=== PATIENT | female | born 1975 | race Caucasian/White ===

== ENCOUNTER → 2017-03-22 | Outpatient (CLI) | payer OTHER ==
[~2017-03-22] MED LIST: NAPR1TAB9 PO
== END | disposition home or self-care (01) ==
LOC: C.PATHSPEC 16:47
PROVIDERS: ATTEND Dermatology
DX: B07.9 Viral wart, unspecified (principal)

== ENCOUNTER → 2017-08-23 | Outpatient (CLI) | payer OTHER ==
--- NOTE | 2017-08-23 14:50 | DIAGNOSTIC IMAGING REPORT ---
R RIBS UNILATERAL WITH PA CHEST HISTORY: 42 years-old Female RIGHT RIB PAIN acute atypical chest pain with right-sided rib pain. COMPARISON: None available TECHNIQUE: PA view of the chest with 4 views of the right ribs FINDINGS: Cardiomediastinal and hilar silhouettes are within normal limits. No pneumothorax, pleural effusion, focal airspace consolidation or overt pulmonary edema. Surgical clips project over the left axilla. Acute minimally displaced fracture involves the lateral aspect of the right seventh rib with additional questioned acute fracture of the lateral right sixth rib. IMPRESSION: 1. No acute processes of the chest. 2. Acute minimally displaced fracture of the lateral aspect right seventh rib with questioned acute nondisplaced fracture of the lateral right sixth rib. The above report was generated using voice recognition software. It may contain grammatical, syntax or spelling errors. Electronically signed by: Chava Smart M.D. 08/23/2017 2:48 PM Dictated Date/Time: 08/23/2017 2:45 PM
== END | disposition home or self-care (01) ==
LOC: C.RAD 14:20
PROVIDERS: ATTEND Emergency Medicine
DX: R07.81 Pleurodynia (principal); M84.48XA Pathological fracture, other site, initial encounter for fracture

== ENCOUNTER 2019-01-01 11:58 | Inpatient (IN) ==
[2019-01-01] MEDS ORDERED: MoRPHine SULFATE 4 MG/ML 1 ML CARP\\VIAL IV STA ×2 (12:36→15:07)
[2019-01-01] MEDS ORDERED: VANCOMYCIN HCL 1,750 MG in SODIUM CHLORIDE 0.9% 500 ML IV ONE (12:38)
[2019-01-01] MEDS ORDERED: VANCOMYCIN CONSULT ACTIVE PRN (12:38)
--- NOTE | 2019-01-01 12:50 | Emergency Department Note ---
History of Present Illness General Chief complaint: Wound Recheck Stated complaint: RECHECK OF BITE History of Present Illness Maximum Pain Intensity: 6 This patient is a 43-year-old female presents to the emergency department with complaints of redness, swelling and pain to the right hand/thumb. The patient was bitten by a possible insect 3 nights ago. She reports a history of anaphy laxis to bees. The patient did not see the insect. The pain is a throbbing sensation. She rates her discomfort a 5/10. She has been taking Tylenol [id number] with no relief. The patient was seen in the emergency department last evening for the same complaint. She was given 1 dose of Roce phin. She was put on Keflex and Bactrim, which she has been taking as prescribed with no improvement. Vaccinations are up-to-date. She denies any fever. The patient is right-hand dominant. Home Medications Home Medications Medication Instructions Recorded Confirmed Type cephalexin [Keflex] 500 mg PO Q6H 10 Days #40 cap 12/31/18 01/01/19 Rx sulfamethoxazole-trimethoprim 1 tab PO Q12H 10 Days #20 tab 12/31/18 01/01/19 Rx [Bactrim DS] Allergies Allergy/AdvReac Type Severity Reaction Status Date / Time amoxicillin Allergy Intermediate RASH Verified 01/01/19 12:35 ketorolac Allergy Unknown hives with Verified 01/01/19 12:35 large dose nitrofurantoin Allergy Unknown rash Verified 01/01/19 12:35 Penicillins Allergy Unknown rash Verified 01/01/19 12:35 promethazine Allergy Unknown unknown Verified 01/01/19 12:35 tramadol Allergy Unknown hives Verified 01/01/19 12:35 vancomycin Allergy Rash Verified 01/01/19 19:55 Past Med/Surg History Medical History Anemia, unspecified (Chronic) Raynauds syndrome (Chronic) Lupus Surgical History History of total hip replacement No significant past surgical history Social History Preferred Language: Barbadian Communication Ability: Effective Icu Registered Nurse Required: No Beliefs That Will Affect Care: None marital status: Single Current Living Situation: Spouse current occupational status: employed Other Information That Helps Us Care for You: No Feels Safe at Home: Yes Safety Concerns: Feels Safe At This Time Smoking Status: Never smoker Do You Dip or Chew Tobacco: No ; Second Hand Exposure: No ; Tobacco Cessation Education Requested by Patient: No Hx Alcohol Use: Yes Hx Substance Use: No Review of Systems A total of 10 systems reviewed and were otherwise negative Physical Exam Vital Signs Vital Signs - 24 hr 01/01/19 12:10 01/01/19 13:09 01/01/19 13:30 Temperature 36.6 C Temperature Source Oral Sepsis Recent Fever Within 48 Hours No Sepsis New/Unexplained Change in Mental Status No Sepsis Action Taken by Nursing No Action Required Pulse Rate 85 67 64 Pulse Rate from SpO2 Sensor 67 66 Respiratory Rate 18 9 L 14 Respiratory Depth Normal Blood Pressure 127/83 129/78 143/90 H Blood Pressure Mean 97 95 107 Pulse Oximetry 97 96 98 Oxygen Delivery Method Room Air 01/01/19 14:00 01/01/19 14:30 Temperature Temperature Source Sepsis Recent Fever Within 48 Hours Sepsis New/Unexplained Change in Mental Status Sepsis Action Taken by Nursing Pulse Rate 74 75 Pulse Rate from SpO2 Sensor 72 73 Respiratory Rate 13 15 Respiratory Depth Blood Pressure 130/90 121/77 Blood Pressure Mean 103 91 Pulse Oximetry 99 100 Oxygen Delivery Method Constitutional WD/WN, vitals as above Eyes EOM intact bilaterally ENMT external ear and nose normal, oropharynx normal Neck trachea midline Respiratory normal respiratory effort, lungs clear to auscultation Cardiovascular RRR, no murmur, no edema Musculoskeletal Diffuse edema and erythema noted to the right hand particularly over the thumb, thenar aspect proceeding upwards with erythematous streaking to the forearm. Significant pain with flexion and extension of the right thumb. Skin There is an approximately 3 cm large hemorrhagic bullae noted to the proximal aspect of the right thumb. Capillary refill in the right thumb is less than 2 seconds. Sensation in the thumb is intact. Neurologic Alert and oriented x3. No focal motor deficits. Psychiatric Acting appropriately Course Patient was seen and examined Vital signs including blood pressure were reviewed medications list was verified with patient Labs were obtained, and a saline lock was established The patient was ordered morphine 4 mg IV for pain. She was ordered 1 dose of vancomycin IV. Orthopedics was consulted. They personally evaluated the patient. I was called by the RN that the patient was having a reaction to the vancomycin. When I reassessed the patient. She did have an erythematous rash particularly on her cheeks and abdomen. She was ordered Benadryl 50 mg and Solu-Medrol 125 mg. The case was discussed with orthopedics. They agreed to admit the patient for further observation and treatment. The patient was in agreement. She was ordered 1 additional dose of morphine 4 mg IV. Her vital signs remained stable. Consultations Consultation #1: Dr. Gerardo and team Administered Medications Acetaminophen (Tylenol) 650 mg PO Q6H PRN PRN Reason: Fever or Headache Stop: 01/31/19 16:09 Last Admin: 01/01/19 19:55 Dose: 650 mg Documented by: [id number] Cefazolin Sodium (Ancef 2000mg) 2,000 mg in 15 mls @ 3.75 mls/min IV Q8H TODD Stop: 01/11/19 16:29 Last Admin: 01/01/19 17:42 Dose: 3.75 mls/min Documented by: [id number] Trimethoprim/Sulfamethoxazole (Septra Ds 800/160mg Tab) 1 tab PO Q12 TODD Stop: 01/11/19 20:59 Last Admin: 01/01/19 20:56 Dose: 1 tab Documented by: [id number] Discontinued Medications Diphenhydramine HCl (Benadryl) 50 mg IV NOW STA Stop: 01/01/19 15:00 Last Admin: 01/01/19 15:08 Dose: 50 mg Documented by: [id number] Vancomycin HCl 1,750 mg/ (Sodium Chloride) 535 mls @ 200 mls/hr IV NOW ONE Stop: 01/01/19 15:18 Last Infusion: 01/01/19 14:50 Dose: 0 mls/hr Documented by: [id number] Admin: 01/01/19 13:01 Dose: 200 mls/hr Documented by: [id number] Methylprednisolone (Solumedrol) 125 mg IV NOW STA Stop: 01/01/19 15:00 Last Admin: 01/01/19 15:08 Dose: 125 mg Documented by: [id number] Methylprednisolone (Solumedrol) Confirm Administered Dose 125 mg .ROUTE .STK-MED ONE Stop: 01/01/19 15:01 Last Admin: 01/01/19 15:08 Dose: Not Given Documented by: [id number] Morphine Sulfate (Morphine Sulfate) 4 mg IV NOW STA Stop: 01/01/19 12:37 Last Admin: 01/01/19 12:59 Dose: 4 mg Documented by: [id number] Morphine Sulfate (Morphine Sulfate) 4 mg IV NOW STA Stop: 01/01/19 15:08 Last Admin: 01/01/19 15:14 Dose: 4 mg Documented by: [id number] Medical Decision Making Medical Records Attestation: I reviewed the patient's medical records. Home Medications Current Medication List: was personally reviewed by me Laboratory Data Attestation: I reviewed the patient's lab results. Result diagrams: 01/01/19 12:57 01/01/19 12:57 Lab Results 01/01/19 01/01/19 01/01/19 Range/Units 12:57 12:57 12:57 WBC 4.53 L (4.8-10.8) K/uL RBC 4.54 (4.2-5.4) M/uL Hgb 14.5 (12.0-16.0) g/dL Hct 40.9 (37-47) % MCV 90.1 (80-100) fL MCH 31.9 (25-34) pg MCHC 35.5 (32-36) g/dL RDW Std Deviation 44.2 (36.4-46.3) fL RDW Coeff of Ashli 13.5 (11.5-14.5) % Plt Count 235 (130-400) K/uL MPV 10.7 H (7.4-10.4) fL Immature Gran % (Auto) 0.0 % Neut % (Auto) 47.6 % Lymph % (Auto) 42.2 % [place] % (Auto) 7.1 % Eos % (Auto) 2.9 % Baso % (Auto) 0.2 % Immature Gran # (Auto) 0.00 (0.00-0.02) K/uL Neut # (Auto) 2.16 (1.4-6.5) K/uL Lymph # (Auto) 1.91 (1.2-3.4) K/uL [place] # (Auto) 0.32 (0.11-0.59) K/uL Eos # (Auto) 0.13 (0-0.5) K/uL Baso # (Auto) 0.01 (0-0.2) K/uL ESR 8 (0-21) mm/hr Sodium 143 (136-145) mmol/L Potassium 3.5 (3.5-5.1) mmol/L Chloride 108 H (98-107) mmol/L Carbon Dioxide 30 (21-32) mmol/L Anion Gap 4.0 (3-11) BUN 13 (7-18) mg/dl Creatinine 0.95 (0.6-1.2) mg/dl Est Cr Clr Drug Dosing 82.8 ml/min Est GFR ( Amer) 83.8 Est GFR (Non-Af Amer) 72.3 BUN/Creatinine Ratio 14.0 (10-20) Glucose 93 (70-99) mg/dl Calcium 9.5 (8.5-10.1) mg/dl Total Bilirubin 0.5 (0.2-1) mg/dl AST 16 (15-37) U/L ALT 26 (12-78) U/L Alkaline Phosphatase 120 H (45-117) U/L C-Reactive Protein 0.67 H (0-0.29) mg/dl Total Protein 7.6 (6.4-8.2) gm/dl Albumin 4.0 (3.4-5.0) gm/dl Globulin 3.6 (2.5-4.0) gm/dl Albumin/Globulin Ratio 1.1 (0.9-2) Blood Pressure Blood Pressure Findings: Elevated blood pressure Blood Pressure Disposition: did not require urgent referral MDM Narrative Differential diagnosis: Insect bite/sting/envenomation, infectious etiology, tenosynovitis, sepsis, among others This patient is a 43-year-old female who presents to the emergency department with complaints of worsening erythema and pain of the right hand after a possible insect bite. On exam, the erythema was worse. She now has bullae forming. The etiology of her symptoms are unclear. Infection is likely. She is not responding to the Keflex and Bactrim. I do not feel comfortable sending the patient home given this is her dominant hand and it appears to be worsening. Orthopedics agreed to evaluate the patient for possible inpatient management. The patient was in agreement. Impression & Plan Cellulitis of right hand Discharge Plan Visit Data *Final* Discharge Date/Time: 01/01/19 15:56 Chief Complaint: Wound Recheck Stated Complaint: RECHECK OF BITE ED Provider: Dona Zuleta ED Midlevel Provider: Urban,Mercedes P Discharge Problem: Cellulitis of right hand Patient Disposition: Admitted As Inpatient Discharge Instructions Interventions: ED Discharge Assessment Last Done: 01/01/19 15:56
[2019-01-01 13:09] LABS: Basophils # (auto) 0.01 K/uL (0-0.2); Basophils % (auto) 0.2 %; Eosinophils # (auto) 0.13 K/uL (0-0.5); Eosinophils % (auto) 2.9 %; Hematocrit (blood only) 40.9 % (37-47); Hemoglobin 14.5 g/dL (12.0-16.0); Lymphocytes # (auto) 1.91 K/uL (1.2-3.4); Lymphocytes % (auto) 42.2 %; Mean Corpuscular Hemoglobin 31.9 pg (25-34); Mean Corpuscular Hgb Conc 35.5 g/dL (32-36); Mean Corpuscular Volume 90.1 fL (80-100); Mean Platelet Volume 10.7 fL (7.4-10.4); Monocytes # (auto) 0.32 K/uL (0.11-0.59); Monocytes % (auto) 7.1 %; Neutrophils # (auto) 2.16 K/uL (1.4-6.5); Neutrophils % (auto) 47.6 %; Platelet Count 235 K/uL (130-400); RDW Coefficient of Variation 13.5 % (11.5-14.5); RDW Standard Deviation 44.2 fL (36.4-46.3); Red Blood Count 4.54 M/uL (4.2-5.4); White Blood Count 4.53 K/uL (4.8-10.8)
[2019-01-01 13:25] LABS: C Reactive Protein 0.67 mg/dl (0-0.29); Calcium 9.5 mg/dl (8.5-10.1); Creatinine Clr Calc Pharmacy 82.8 ml/min; Est GFR (African American) 83.8; Est GFR (Non-African American) 72.3; Potassium 3.5 mmol/L (3.5-5.1)
[2019-01-01 13:28] LABS: Albumin Globulin Ratio 1.1 (0.9-2); Bilirubin,Total 0.5 mg/dl (0.2-1); Globulin 3.6 gm/dl (2.5-4.0); Total Protein 7.6 gm/dl (6.4-8.2)
[2019-01-01] MEDS ORDERED: DiphenhydrAMINE HCL 50 MG/ML VIAL IV STA (14:59)
[2019-01-01] MEDS ORDERED: methylPREDNISolone 125 MG/2 ML VIAL IV STA (14:59)
--- NOTE | 2019-01-01 14:59 | History & Physical Report ---
Date of Service January 01, 2019 Assessment & Plan (1) Cellulitis of right hand: She was seen and examined by Dr. Dos Santos today. We discussed treatment options and after discussion the safest thing for her is admission and IV antiobiotics. The differential includes cellulitis vs a reaction to the insect bite, possibly a spider but it is unknown what bit her. No signs of an abscess or flexor tenosynovitis right now but we will continue to follow her daily. We will continue the vanco, consult infectious disease service as well for their recommendations. She has a reaction to toradol so we will hold off ordering that. 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 She states that 2 day ago she got into her truck and was bit by something on her right thumb. It was painful. She is unsure of what it was. She was in the ED yesterday, given IV rocephin, and discharged home on keflex and bactrim. She came back today for worsening swelling, redness, pain. She was getting vanco right now. Early this month she had another bite involving the right upper arm that she was treated with keflex for. Allergies Allergy/AdvReac Type Severity Reaction Status Date / Time amoxicillin Allergy Intermediate RASH Verified 01/01/19 12:35 ketorolac Allergy Unknown hives with Verified 01/01/19 12:35 large dose nitrofurantoin Allergy Unknown rash Verified 01/01/19 12:35 Penicillins Allergy Unknown rash Verified 01/01/19 12:35 promethazine Allergy Unknown unknown Verified 01/01/19 12:35 tramadol Allergy Unknown hives Verified 01/01/19 12:35 Home Medications Home Medications Medication Instructions Recorded Confirmed Type cephalexin [Keflex] 500 mg PO Q6H 10 Days #40 cap 12/31/18 01/01/19 Rx sulfamethoxazole-trimethoprim 1 tab PO Q12H 10 Days #20 tab 12/31/18 01/01/19 Rx [Bactrim DS] Past Med/Surg History Medical History Anemia, unspecified (Chronic) Raynauds syndrome (Chronic) Lupus Surgical History History of total hip replacement No significant past surgical history Social History Preferred Language: Turkish marital status: Single current occupational status: employed Feels Safe at Home: Yes Smoking Status: Never smoker Review of Systems Constitutional: no fever and no chills Musculoskeletal: as per Subjective / HPI Physical Exam Physical Exam: Exam of her right hand: She has swelling involving the thumband dorsal radial side of hand. She has visible fluid filled blisters around her thumb. She has pain with motion of the thumb. She is NVI. Good wrist ROM. There is erythema around the thumb and hand. No streaking erythema into the arm. No areas of fluctuance at this time. Results & Data Vital Signs (Past 12 Hours) Vital Signs Temp Pulse Resp BP Pulse Ox 01/01/19 14:00 74 13 130/90 99 01/01/19 13:30 64 14 143/90 H 98 01/01/19 13:09 67 9 L 129/78 96 01/01/19 12:10 36.6 C 85 18 127/83 97 Laboratory Results ESR is 8. CRP is 0.67 PG Care Time/CCT Total # of Minutes Spent Total Time Spent with Patient: Total time spent is greater than 50% in coordination of care (as documented) at patient's floor/unit and/or counseling patient:
[2019-01-01] MEDS ORDERED: methylPREDNISolone 125 MG/2 ML VIAL ONE (15:00)
[2019-01-01] MEDS: CEFAZOLIN 2000MG 2,000 MG/15 ML SYR IV SCH ×2 (17:42→23:22)
[2019-01-01] MEDS: ACETAMINOPHEN 325 MG TAB PO PRN (19:55)
[2019-01-01] MEDS: SULFAMETHOXAZOLE/TRIMETHOPRIM DS 800/160MG TAB PO SCH (20:56)
[2019-01-02] MEDS: ACETAMINOPHEN 325 MG TAB PO PRN ×2 (02:29→08:50)
[2019-01-02] MEDS: SULFAMETHOXAZOLE/TRIMETHOPRIM DS 800/160MG TAB PO SCH (08:48)
[2019-01-02] MEDS: CEFAZOLIN 2000MG 2,000 MG/15 ML SYR IV SCH (08:48)
--- NOTE | 2019-01-02 11:24 | Infectious Disease Consult ---
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 follow cultures. would consider MRI vs I&D wound - ortho following. She states she is certain she had insect bite, however, would suggest tetanus booster as well. will follow. History of Present Illness Attending Physician: Jay Dos Santos MD pt admitted after worsening swelling, blistering and pain in right hand. no f/c at home. states she was in [place] on sat mowing grass, was feeling fine, she states she got into her car - grabbed steering wheel and felt a bite, states not a bee as she is allergic to bees (has epipen, did not need) unsure what bit her. 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 On Monday she woke up with blistering, ecchymosis at bite and worsening pain to foremarm, swelling and erythema. She came back to ER, saw ortho, had x ray which was negative, was given ancef and continued on bactrim. feels it is worse toaday, increased swelling, pain to elbow, increased size of blister. denies f/c. getting tylenol for pain with no relief. blood cultures pending, wbc 4, ESR 8. right hand domin ant. Denies cp, sob, n/v/d/abd pain, tolerating abx. concerned she may develop vaginal yeast infection but no symptoms at this time. sensation intact, able to move all digits but painful. she did receive vanco in ER, developed redness, now resolved. Allergies Allergy/AdvReac Type Severity Reaction Status Date / Time amoxicillin Allergy Intermediate RASH Verified 01/01/19 12:35 ketorolac Allergy Unknown hives with Verified 01/01/19 12:35 large dose nitrofurantoin Allergy Unknown rash Verified 01/01/19 12:35 Penicillins Allergy Unknown rash Verified 01/01/19 12:35 promethazine Allergy Unknown unknown Verified 01/01/19 12:35 tramadol Allergy Unknown hives Verified 01/01/19 12:35 vancomycin Allergy Rash Verified 01/01/19 19:55 Home Medications Home Medications Medication Instructions Recorded Confirmed Type cephalexin [Keflex] 500 mg PO Q6H 10 Days #40 cap 12/31/18 01/01/19 Rx sulfamethoxazole-trimethoprim 1 tab PO Q12H 10 Days #20 tab 12/31/18 01/01/19 Rx [Bactrim DS] Patient History Medical History Anemia, unspecified (Chronic) Raynauds syndrome (Chronic) Lupus Surgical History History of total hip replacement No significant past surgical history Social History Preferred Language: Yakut Communication Ability: Effective Wire Technician Required: No Beliefs That Will Affect Care: None marital status: Single Current Living Situation: Spouse current occupational status: employed Other Information That Helps Us Care for You: No Feels Safe at Home: Yes Safety Concerns: Feels Safe At This Time Smoking Status: Never smoker Do You Dip or Chew Tobacco: No ; Second Hand Exposure: No ; Tobacco Cessation Education Requested by Patient: No Hx Alcohol Use: Yes Hx Substance Use: No Review of Systems Review of Systems: All systems reviewed & are unremarkable except as noted in HPI & below Physical Exam Constitutional: WD/WN, vitals as above Eyes: PERRL, conjunctivae normal, anicteric sclerae ENMT: external ear and nose normal, oropharynx normal Neck: normal visual inspection Respiratory: normal respiratory effort, lungs clear to auscultation Cardiovascular: RRR, no murmur, no edema Gastrointestinal (Abdomen): normal bowel sounds, soft, nontender, no hepatosplenomegaly Musculoskeletal: no cyanosis or clubbing, extremities motor strength 5/5 Skin: + wound (large bliste with ecchymosis right thumb, tender); no rashes Trauma: + evidence of skin trauma Psychiatric: A+Ox3, euthymic affect Results & Data Vital Signs (Past 12 Hours) Vital Signs Temp Pulse Resp BP Pulse Ox 01/02/19 07:41 36.5 C 62 16 109/69 97 PG Care Time/CCT Total # of Minutes Spent Total Time Spent with Patient: Total time spent is greater than 50% in coordination of care (as documented) at patient's floor/unit and/or counseling patient:
[2019-01-02] MEDS: DAPTOmycin 250 MG in SYRINGE 0 ML IV SCH (12:03)
[2019-01-02] MEDS: OXYCODONE HCL IR 5 MG TAB (IMMEDIATE RELEASE) PO PRN (18:41)
[2019-01-02] MEDS ORDERED: DIPHTHERIA/TETANUS/PERTUSSIS 0.5 ML SYR/VIAL IM ONE (19:30)
--- NOTE | 2019-01-02 20:36 | Progress Note ---
DATE: 01/02/2019 SUBJECTIVE: A 43-year-old female admitted with cellulitis and inflammation of the right hand after unspecified bite. She seems to be doing a little bit better today. The swelling seems to be better and her motion seems to be a little bit better. Pain is about the same. OBJECTIVE: VITAL SIGNS: Temperature is 36.7. Vital signs stable. GENERAL: Shows a pleasant, middle-aged female. She is sitting up in her bedside chair, talking with friends. EXTREMITIES: Examination of the right hand reveals the blood filled bolus to be intact. There is clearly less swelling, less inflammation of the fingertip and she bends her finger better. There is no tenderness particularly along the flexor tendon sheath. There are no fluid collections. Her thenar soft tissues are also more supple. She is neurologically intact. ASSESSMENT: A 43-year-old female, 3 days out from right thumb bite of unspecified nature, now with some cellulitis and inflammation. Clinically, she seems to be doing better. No signs of pus. No signs of flexor tenosynovitis. This all appears to be cellulitis at this point and just inflammatory reaction. PLAN: We will continue the antibiotics as per the infectious disease staff. She really has difficulty taking some antibiotics and had red man syndrome with vancomycin. I do not think there is anything to culture. The bolus does not look infected; it looks to be related to swelling. We certainly could rupture and culture it if necessary, but I think that is unlikely to be fruitful and only opens her skin for further infection. At this point, she is improving and I would recommend continued observation. If there is any suspicion for a fluid pocket or abscess then an MRI would be appropriate. We will continue antibiotics as per ID.
[2019-01-03] MEDS: OXYCODONE HCL IR 5 MG TAB (IMMEDIATE RELEASE) PO PRN (04:13)
[2019-01-03] MEDS: LACTOBACILLUS ACIDOPHILUS 1 GM PACK PO SCH ×3 (07:42→17:43)
--- NOTE | 2019-01-03 07:57 | Progress Note ---
DATE: 01/03/2019 SUBJECTIVE: A 43-year-old white female admitted with a right hand infection after an unspecified bite. Seems to be doing a little bit better. Swelling seems to be better. No other complaints. OBJECTIVE: VITAL SIGNS: Temperature 36.6. Vital signs stable. PHYSICAL EXAMINATION: Physical examination of the right hand reveals the bullous to be intact. There is a blister on the palmar side of her hand in the area of the proposed bite that looks a little bit purulent. She can flex and extend her finger about 50%. No exquisite pain. Her compartments are soft. No obvious signs of abscess. ASSESSMENT: A 43-year-old white female admitted with a right hand cellulitis without obvious abscess or flexor tenosynovitis. This blister looks a little bit inflammatory and pussy on the palmar aspect of her thumb and I did open this this morning. I had opened all the blisters and they looked like sterile blisters. I did culture the blister, but it really looked clinically sterile. There was no pus. PLAN: We will continue antibiotics for today. I would like to switch her to oral antibiotics probably tomorrow if she continues to improve and discharged tomorrow. We are hoping infectious disease can help us with outpatient antibiotic management.
[2019-01-03] MEDS: DAPTOmycin 250 MG in SYRINGE 0 ML IV SCH (11:31)
[2019-01-03] MEDS: levoFLOXacin 500 MG TAB PO SCH (11:31)
--- NOTE | 2019-01-03 14:17 | Infectious Disease Progress Nt ---
Date of Service January 03, 2019 Assessment & Plan (1) Cellulitis of right hand: will continue IV abx for now, follow cultures - agree wound culture likely will be negative. clinically improving. Will plan to transition to po doxy 100mg po bid and continue with po levaquin at current dose upon d/c - would give 14 days. Subjective pt seen in followup, oob to chair, overall feeling better. underwent opening of blister this am, tolerated well. feeling much better now, significantly less pain, increased rom. dressing intact, no bleeding or drainage, culture sent and is pending. She is tolerating abx. no abd pain, no n/v/d. no plans for OR at this time, states she spoke with ortho and if improved will go home tomorrow on po abx. Admission blood cultures remain negative. afebrile. Review of Systems Review of Systems: All systems reviewed & are unremarkable except as noted in HPI & below Physical Exam Constitutional: WD/WN, vitals as above Eyes: PERRL, conjunctivae normal, anicteric sclerae ENMT: external ear and nose normal, oropharynx normal Neck: normal visual inspection Respiratory: normal respiratory effort, lungs clear to auscultation Cardiovascular: RRR, no murmur, no edema Gastrointestinal (Abdomen): normal bowel sounds, soft, nontender, no hepatosplenomegaly Musculoskeletal: no cyanosis or clubbing, extremities motor strength 5/5 Skin: + wound (large bliste with ecchymosis right thumb, tender); no rashes Trauma: + evidence of skin trauma dressing intact. no forearm edema, erythema, tenderness, warmth Psychiatric: A+Ox3, euthymic affect Results & Data Vital Signs (Past 12 Hours) Vital Signs Temp Pulse Resp BP Pulse Ox 01/03/19 06:55 36.6 C 61 18 115/71 97 Laboratory Results Microbiology 01/01/19 12:57 Blood Aerobic Blood Culture - Preliminary No growth in Aerobic bottle after 24 hours. 01/01/19 12:57 Blood Anaerobic Blood Culture - Preliminary No growth in Anaerobic bottle after 24 hours. 01/01/19 12:57 Blood Aerobic Blood Culture - Preliminary No growth in Aerobic bottle after 24 hours. 01/01/19 12:57 Blood Anaerobic Blood Culture - Preliminary No growth in Anaerobic bottle after 24 hours. PG Care Time/CCT Total # of Minutes Spent Total Time Spent with Patient: Total time spent is greater than 50% in coordination of care (as documented) at patient's floor/unit and/or counseling patient:
[2019-01-04] MEDS: LACTOBACILLUS ACIDOPHILUS 1 GM PACK PO SCH ×2 (08:11→11:15)
[2019-01-04] MEDS: levoFLOXacin 500 MG TAB PO SCH (11:14)
[2019-01-04] MEDS: DAPTOmycin 250 MG in SYRINGE 0 ML IV SCH (11:14)
--- NOTE | 2019-01-04 15:15 | Progress Note ---
DATE: 01/04/2019 SUBJECTIVE: A 43-year-old female postop day 3 from admission for right hand cellulitis from a bite. She is doing quite a bit better today. Pain is improved. Finger motion is improved. No new complaints. OBJECTIVE: VITAL SIGNS: Temperature 36.5. Vital signs stable. GENERAL: Shows a pleasant, middle-aged female. She is up walking around in the room and looks comfortable. EXTREMITIES: Examination of the right hand reveals the swelling to be markedly improved. The blister has been deroofed, a little moist under this but no signs of progressive cellulitis. She can flex and extend her thumb and minimal tenderness over the flexor sheath. She is neurologically intact. No signs of pus or purulence or abscess collection. Gram stain reveals no WBCs, no organisms seen. Cultures, no growth to date. ASSESSMENT: A 43-year-old white female with a right hand cellulitis, markedly improved after inpatient antibiotic management. No signs of abscess or flexor tenosynovitis. PLAN: We will discharge her today. We are going to send her home on ID's recommendation of doxycycline and Levaquin for 2 weeks. I will see her back in 10-14 days for a check. As far as management of the wound, she can remove the dressing and wash it daily. She can just replace it with some antibiotic ointment and a light dressing.
--- NOTE | 2019-01-09 09:03 | Discharge Summary ---
ADMITTING PHYSICIAN: Dr. Jay Dos Santos. ADMITTING DIAGNOSIS: Right thumb cellulitis and inflammation. SECONDARY DIAGNOSES: Anemia, Raynaud's syndrome and lupus. CONSULTS: Dr. Tolentino for infectious disease service. HISTORY AND PHYSICAL EXAMINATION: Well documented in the patient's chart. HOSPITAL COURSE: The patient presented to the Emergency Department on 01/01/2019 and was subsequently admitted to orthopedic service with a right thumb cellulitis/inflammation. Infectious disease consult was obtained for further antibiotic recommendations. 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 She was given Ancef and Bactrim, which was later changed by the infectious disease service. The blistering around her thumb was opened and cultured. There was no pus and the culture from this showed no organisms on Gram stain and no growth for the final culture. On her third day of admission, she was doing better clinically. Her pain was improved and her finger motion improved. She had no signs of abscess or flexor tenosynovitis. She was discharged home at that point. She was given printed discharge instructions. She can remove her dressing daily and wash her hand daily and apply some antibiotic ointment and new dressing to her hand. Continue the antibiotics, specifically doxycycline and Levaquin as recommended by the infectious disease service. The Keflex and Bactrim was discontinued. She will follow up approximately 10-14 days or sooner if there are any problems or concerns.
== END 2019-01-04 13:09 | disposition home or self-care (01) | DRG 603 ==
LOC: ED 11:58 → 3E 15:00 → INTOOBSV 15:00 → 3E 15:56